=== PATIENT | male | born 1965 | race Two or more races ===

== ENCOUNTER 2020-11-14 09:35 | Outpatient (CLI) | payer BC, MEDICAID ==
[~2020-11-14] VITALS: Ht 182.9 cm; Wt 113.4 kg
[~2020-11-14 09:35] MED LIST: iohexol 350MG/ML 100ml bottle IV ONE
[2020-11-14] MEDS ORDERED: MESSAGE TO NURSING PO ONE (10:35)
== END 2020-11-14 23:59 | disposition home or self-care (01) ==
LOC: 64 CT 09:35
PROVIDERS: ATTEND Neurological Surgery
DX: I65.21 Occlusion and stenosis of right carotid artery (principal)
CPT/HCPCS: 70496; 70498; Q9967